=== PATIENT | male | born 2000 | race Caucasian/White ===

== ENCOUNTER 2021-05-03 21:51 | Emergency (ER) | payer OTHER, SELFPAY ==
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
[2021-05-03 22:06] VITALS: BP 111/56; BP 98/56; PULSE 104; PULSE 89; RESP 18; TEMP 36.4; O2SAT 98; BMI 27.3
[2021-05-03] MEDS: LORazepam 2 MG/ML VIAL IM (22:10)
--- NOTE | 2021-05-03 22:36 | PC.NURSE ---
pt is requesting medication to help him with his restlessness and etoh feelings. adult friend at bedside and is a great support person for him. im medication on order.
[2021-05-03] MEDS: OLANZapine 10 MG VIAL 5 MG IM ×2 (22:54)
[2021-05-03 22:55] VITALS: BP 110/72; PULSE 95; RESP 18; O2SAT 96
--- NOTE | 2021-05-03 22:59 | PC.NURSE ---
pt took the olanzapine im with calm cooperative. pt is requesting the medication to help him with the etoh anxiety feeling. family friend adult at bedside and is a great comfort for the pt.
[2021-05-03 23:25] VITALS: BP 104/71; PULSE 70; RESP 18; O2SAT 96
[2021-05-03 23:40] VITALS: PULSE 70; RESP 18; O2SAT 96
[2021-05-04] VITALS: RESP 18
[2021-05-04 02:00] VITALS: RESP 20
[2021-05-04 04:00] VITALS: RESP 19
--- NOTE | 2021-05-04 06:35 | PC.NURSE ---
pt has been sleeping thur the night, skin warm and dry, needs at bedside. pt has a ride home in the morning. the same person who brought the pt.
--- NOTE | 2021-05-04 08:09 | PC.NURSE ---
pt sleeping resp even and unlabored. plan for dc
--- NOTE | 2021-05-04 08:19 | PC.NURSE ---
pt on the phone with mom asking for a ride home
== END 2021-05-04 09:06 | disposition home or self-care (01) ==
PROVIDERS: Emergency Provider Emergency Medicine; PCP Pediatrics
DX: F10.920 Alcohol use, unspecified with intoxication, uncomplicated (principal); Y90.9 Presence of alcohol in blood, level not specified; R45.6 Violent behavior; R45.1 Restlessness and agitation; F41.9 Anxiety disorder, unspecified; S60.511A Abrasion of right hand, initial encounter; S60.221A Contusion of right hand, initial encounter; W22.09XA Striking against other stationary object, initial encounter; Y93.89 Activity, other specified; Y92.019 Unspecified place in single-family (private) house as the place of occurrence of the external cause; Y99.9 Unspecified external cause status
CPT/HCPCS: 73130; 96372; 99284; 99285; J2060